=== PATIENT | male | born 1945 | race Caucasian/White ===

== ENCOUNTER 2016-09-18 08:56 | Outpatient (RCR) | payer MEDICARE ==
--- OUTSIDE RECORDS SUMMARY | 2016-07-11 13:19 | XMS REPORT | Continuity of Care Document ---
Author Author [facility] Organization [facility] Address Unknown Phone Unavailable Care Team Providers Care Airfield Operations Specialist Name Role Phone Art Das PCP [phone] Source Comments Some departments are not documenting in the electronic medical record. If you do not see the information that you expected, contact Release of Information in the Health Information Management department at [phone] for further assistance in locating additional records.[facility] Active Allergies and Adverse Reactions Allergen Noted Date Severity Reactions Comments Penicillins 06/23/2016 Medium ITCHING, EDEMA Sulfa (Sulfonamide 06/23/2016 Low SEE COMMENTS "Makes scrotum peel" Antibiotics) Current Medications Prescription Sig. Disp. Refills Start End Date Status Date Fish,Bora,Flax Take 2 Caps by mouth Active Oils-OM3,6,9 #1 (OMEGA daily. 3-6-9 COMPLEX) 400-400-400 mg cap other medication Take 2 Doses by mouth Active daily. Skeletal Strength pyridoxine (vitamin B6) Take 100 mg by mouth Active (VITAMIN B-6) 50 mg daily. tablet other medication Take 2 Doses by mouth Active daily. L-Arginine 500 mg, L-Ornithine Amino Acids 250 mg cyanocobalamin(+) Take 500 mcg by mouth Active (VITAMIN B-12) 500 mcg daily. tablet other medication Take 2 Doses by mouth Active daily. Protease Plus Enzymees 60,000 HUT other medication Take 2 Doses by mouth Active daily. Apricot Powder B17 Amygdalin 100 mg other medication Take 2 Doses by mouth Active daily. Perfect eye with Lutein other medication Take 1 Dose by mouth Active daily. BeeCaps Plus with Chromium tamsulosin (FLOMAX) 0.4 Take 0.4 mg by mouth Active mg capsule daily. Do not crush, chew or open capsules. Take 30 minutes following the same meal each day. simvastatin (ZOCOR) 20 mg Take 20 mg by mouth at Active tablet bedtime daily. dicyclomine (BENTYL) 10 Take 10 mg by mouth four Active mg capsule times daily. ALPRAZolam (XANAX) 0.5 mg Take 0.5-1 mg by mouth Active tablet daily. folic acid (FOLVITE) 1 mg Take 1 mg by mouth daily. Active tablet gabapentin (NEURONTIN) Take 300 mg by mouth Active 300 mg capsule three times daily. 3 tabs in am, 3 tabs in afternoon and 4 tab at bedtime. Active Problems Problem Noted Date Small cell lung cancer (HCC) 06/23/2016 Most Recent Encounters Date Type Specialty Providers Description 07/03/2016 Office Visit Radiation Therapy Chuck Alegria MD Small cell lung cancer, right (HCC) (Primary Dx) 07/03/2016 [facility] Radiology Dioni Ferris MD Encounter 07/03/2016 Screening Form 06/23/2016 [facility] Oncology Dioni Ferris MD Encounter 06/23/2016 Office Visit Oncology Dioni Ferris MD Small cell lung cancer, right (HCC) (Primary Dx) 06/23/2016 Orders Only Oncology Dioni Ferris MD Small cell lung cancer, right (HCC) (Primary Dx) Social History Tobacco Use Types Packs/Day Years Used Date Former Smoker Cigarettes 0.25 50 Quit: 06/23/2015 Smokeless Tobacco: Never Used Alcohol Use Drinks/Week oz/Week Comments No 0 Standard 0.0 drinks or equivalent Last Filed Vital Signs Vital Sign Reading Time Taken Blood Pressure 130/87 07/03/2016 10:16 AM CDT Pulse 86 07/03/2016 10:16 AM CDT Temperature 36.8 C (98.3 F) 07/03/2016 10:16 AM CDT Respiratory Rate 18 07/03/2016 10:16 AM CDT Height 1.88 m (6' 2") 07/03/2016 10:16 AM CDT Weight 97.705 kg (215 lb 6.4 oz) 07/03/2016 10:16 AM CDT Body Mass Index 27.64 07/03/2016 10:16 AM CDT Oxygen Saturation 94% 07/03/2016 10:16 AM CDT Plan of Care Health Maintenance Due Date Last Done Comments Hepatitis C Screening 1945 Physical (Comprehensive) 1953 Exam Pertussis Vaccine 1957 Tetanus Vaccine 1963 Colorectal Cancer 1996 Screening Shingles Vaccine 2006 Prevnar/Pneumovax (#1) 2011 Influenza Vaccine 06/08/2016 05/08/2015 (Previously completed) Results from Last 3 Months NM PET SCAN TORSO (SKULL-THIGHS) (07/03/2016 9:00 AM) Impressions 1. Extensive hypermetabolic mediastinal and bilateral hilar adenopathy consistent with metastatic disease. 2. No evidence of extra silver metastatic disease. 3. Calcified coronary artery disease and emphysema. 4. Nonobstructing left nephrolithiasis. Finalized by Edmond Sol M.D. on 07/03/2016 9:32 AM. Dictated by Edmond Sol M.D. on 07/03/2016 9:21 AM. Narrative PET/CT NECK, CHEST, ABDOMEN AND PELVIS CLINICAL HISTORY:Male, 71 years old. Small cell lung cancer, right. Chemotherapy completed in February 2016. RADIOPHARMACEUTICAL:13.3 mCi F-18 Fluorodeoxyglucose (FDG) IV. TECHNIQUE:Beginning approximately 69 minutes after tracer administration, routine whole body PET/CT imaging was performed from the level of the base of the skull to the upper thighs.PET images were reviewed in standard orthogonal projections.Low dose non-contrast CT imaging was performed for attenuation correction and localization purposes. BLOOD GLUCOSE LEVEL AT THE TIME OF RADIOPHARMACEUTICAL ADMINISTRATION:113 mg /dl COMPARISON: Outside CT chest and abdomen dated 05/17/2016 FINDINGS: The current mean hepatic SUV is 3.2 Head/Neck: No suspicious lesions are identified in this region. Chest: Markedly hypermetabolic mediastinal adenopathy is noted. The largest right subcarinal lymph node mass has increased in size now measuring 4.7 x 2.6 cm with a maximal SUV of 20.9. Hypermetabolic bilateral hilar lymph nodes are also noted with maximal SUVs ranging up to 7.1. No suspicious hypermetabolic pulmonary lesions are identified. Abdomen/Pelvis: No suspicious hypermetabolic lesions are seen within the abdomen or pelvis. Physiological activity is noted within the kidneys and bladder. Osseous Structures: No suspicious hypermetabolic osseous lesions are seen. Additional significant low dose CT findings: Left-sided chest port is in place. Emphysematous changes throughout both lungs. Calcified coronary artery disease. Nonobstructing left nephrolithiasis. Colonic diverticulosis. Probable old L1 compression deformity. Uncorrected PET images:The uncorrected PET images demonstrate no additional abnormality. Procedure Note Interface, Radiant Results - SunJul 03, 2016 9:35 AM CDT PET/CT NECK, CHEST, ABDOMEN AND PELVIS CLINICAL HISTORY: Male, 71 years old. Small cell lung cancer, right. Chemotherapy completed in February 2016. RADIOPHARMACEUTICAL: 13.3 mCi F-18 Fluorodeoxyglucose (FDG) IV. TECHNIQUE: Beginning approximately 69 minutes after tracer administration, routine whole body PET/CT imaging was performed from the level of the base of the skull to the upper thighs. PET images were reviewed in standard orthogonal projections. Low dose non-contrast CT imaging was performed for attenuation correction and localization purposes. BLOOD GLUCOSE LEVEL AT THE TIME OF RADIOPHARMACEUTICAL ADMINISTRATION: 113 mg/ dl COMPARISON: Outside CT chest and abdomen dated 05/17/2016 FINDINGS: The current mean hepatic SUV is 3.2 Head/Neck: No suspicious lesions are identified in this region. Chest: Markedly hypermetabolic mediastinal adenopathy is noted. The largest right subcarinal lymph node mass has increased in size now measuring 4.7 x 2.6 cm with a maximal SUV of 20.9. Hypermetabolic bilateral hilar lymph nodes are also noted with maximal SUVs ranging up to 7.1. No suspicious hypermetabolic pulmonary lesions are identified. Abdomen/Pelvis: No suspicious hypermetabolic lesions are seen within the abdomen or pelvis. Physiological activity is noted within the kidneys and bladder. Osseous Structures: No suspicious hypermetabolic osseous lesions are seen. Additional significant low dose CT findings: Left-sided chest port is in place. Emphysematous changes throughout both lungs. Calcified coronary artery disease. Nonobstructing left nephrolithiasis. Colonic diverticulosis. Probable old L1 compression deformity. Uncorrected PET images: The uncorrected PET images demonstrate no additional abnormality. IMPRESSION 1. Extensive hypermetabolic mediastinal and bilateral hilar adenopathy consistent with metastatic disease. 2. No evidence of extra silver metastatic disease. 3. Calcified coronary artery disease and emphysema. 4. Nonobstructing left nephrolithiasis. Finalized by Edmond Sol M.D. on 07/03/2016 9:32 AM. Dictated by Edmond Sol M.D. on 07/03/2016 9:21 AM. COMPREHENSIVE METABOLIC PANEL (06/23/2016 2:36 PM) Component Value Range Sodium 139 137-147 MMOL/L Potassium 4.0 3.5-5.1 MMOL/L Chloride 106 98-110 MMOL/L Glucose 102 (H) 70-100 MG/DL Blood Urea Nitrogen 17 7-25 MG/DL Creatinine 1.06 0.4-1.24 MG/DL Calcium 9.9 8.5-10.6 MG/DL Total Protein 7.4 6.0-8.0 G/DL Total Bilirubin 0.5 0.3-1.2 MG/DL Albumin 4.2 3.5-5.0 G/DL Alk Phosphatase 44 25-110 U/L AST (SGOT) 28 7-40 U/L CO2 27 21-30 MMOL/L ALT (SGPT) 28 7-56 U/L Anion Gap 6 3-12 eGFR Non >60Comment: >60 mL/min The eGFR is not validated for use in drug dosing adjustments. Continue to use estimated creatinine clearance per dosing reference text. Please contact the Clinical Pharmacist for questions. eGFR >60Comment: >60 mL/min The eGFR is not validated for use in drug dosing adjustments. Continue to use estimated creatinine clearance per dosing reference text. Please contact the Clinical Pharmacist for questions. Specimen Blood CBC AND DIFF (06/23/2016 2:36 PM) Component Value Range White Blood Cells 4.5 4.5-11.0 K/UL RBC 4.83 4.4-5.5 M/UL Hemoglobin 14.3 13.5-16.5 GM/DL Hematocrit 42.4 40-50 % MCV 87.8 80-100 FL MCH 29.7 26-34 PG MCHC 33.8 32.0-36.0 G/DL RDW 14.4 11-15 % Platelet Count 165 150-400 K/UL MPV 7.5 7-11 FL Neutrophils 60 41-77 % Lymphocytes 24 24-44 % Monocytes 11 4-12 % Eosinophils 5 0-5 % Basophils 0 0-2 % Absolute Neutrophil Count 2.70 1.8-7.0 K/UL Absolute Lymph Count 1.10 1.0-4.8 K/UL Absolute Monocyte Count 0.50 0-0.80 K/UL Absolute Eosinophil Count 0.20 0-0.45 K/UL Absolute Basophil Count 0.00 0-0.20 K/UL Specimen Blood
[~2016-09-18 08:56] MED LIST: ALPR0.5T PO; ASP81TEC PO; BEE580CA PO; HYDR-3730 PO; L.AC1CAP6 PO; LOTE5DRO4 OP; OMEG-109 PO; ONDA4TAB8 PO; SIMV20TA3 PO; TAMS0.4C2 PO; TRM50T PO; [UNRECOGNIZED DRUG - OTHER] PO; [UNRECOGNIZED DRUG - OTHER] PO
[2016-09-18 09:26] LABS: BASOPHILS % (AUTO) 0 % (0-10); EOSINOPHILS # (AUTO) 0.3 10^3/uL (0.0-0.3); EOSINOPHILS % (AUTO) 8 % (0-10); LYMPHOCYTES # (AUTO) 0.5 X 10^3 (1.0-4.0); LYMPHOCYTES % (AUTO) 13 % (12-44); MEAN CORPUSCULAR HEMOGLOBIN 30 PG (25-34); MEAN CORPUSCULAR HGB CONC 33 G/DL (32-36); MEAN CORPUSCULAR VOLUME 92 FL (80-99); MEAN PLATELET VOLUME 8.6 FL (7.4-10.4); MONOCYTES # (AUTO) 0.4 X 10^3 (0.0-1.0); MONOCYTES % (AUTO) 11 % (0-12); NEUTROPHILS # (AUTO) 2.4 X 10^3 (1.8-7.8); NEUTROPHILS % (AUTO) 68 % (42-75); PLATELET COUNT 140 10^3/uL (130-400); RED BLOOD COUNT 4.31 10^6/uL (4.35-5.85); RED CELL DISTRIBUTION WIDTH 15.6 % (10.0-14.5); WHITE BLOOD COUNT 3.5 10^3/uL (4.3-11.0)
[2016-09-18 09:55] LABS: ALANINE AMINOTRANSFERASE 17 U/L (0-55); ALBUMIN 3.6 G/DL (3.2-4.5); ANION GAP 6 MMOL/L (5-14); ASPARTATE AMINO TRANSFERASE 17 U/L (5-34); BILIRUBIN,TOTAL 0.6 MG/DL (0.1-1.0); BLOOD UREA NITROGEN 12 MG/DL (7-18); BUN/CREATININE RATIO 13; CALCIUM 8.7 MG/DL (8.5-10.1); CARBON DIOXIDE 24 MMOL/L (21-32); CHLORIDE 111 MMOL/L (98-107); CREATININE SERUM 0.93 MG/DL (0.60-1.30); GFR ESTIMATED > 60; GLUCOSE 146 MG/DL (70-105); SODIUM 141 MMOL/L (135-145); TOTAL PROTEIN 6.1 G/DL (6.4-8.2)
== END 2016-10-09 | disposition home or self-care (01) ==
LOC: ONC 08:56
PROVIDERS: ATTEND Internal Medicine Hematology & Oncology
DX: Z51.0 Encounter for antineoplastic radiation therapy (principal); C34.81 Malignant neoplasm of overlapping sites of right bronchus and lung; F17.210 Nicotine dependence, cigarettes, uncomplicated
CPT/HCPCS: 36591; 77290; 77295; 77300; 77307; 77332; 77334; 77336; 77412; 77417; 77470; 80053; 85025; 96523; 99213; 99214

== ENCOUNTER 2016-10-17 13:25 | Outpatient (RCR) | payer MEDICARE | END 2016-10-27 13:48 | disposition home or self-care (01) | LOC: ONC 13:25 | PROVIDERS: ATTEND Internal Medicine Hematology & Oncology | DX: C34.81 Malignant neoplasm of overlapping sites of right bronchus and lung (principal); F17.210 Nicotine dependence, cigarettes, uncomplicated; Z45.2 Encounter for adjustment and management of vascular access device | CPT/HCPCS: 96523 ==

== ENCOUNTER → 2016-11-17 | Outpatient (CLI) | payer MEDICARE ==
[~2016-11-17] MED LIST changes: +BARIUM SUSPENSION 2.1% (VANILLA SILQ) 450 ML PO ONE; +CATHETER FLUSH 10 ML SYR IV PRN; +IOHEXOL 350 MG/ML 100 ML (OMNIPAQUE 350) VIAL IV ONE; +NS 100 ML (IVPB) BAG IV ONE
--- OUTSIDE RECORDS SUMMARY | 2016-11-17 10:17 | XMS REPORT | Continuity of Care Document ---
Author Author [facility] Organization [facility] Address Unknown Phone Unavailable Care Team Providers Care Behavioral Intervention Specialist Name Role Phone Art Das PCP [phone] Source Comments Some departments are not documenting in the electronic medical record. If you do not see the information that you expected, contact Release of Information in the Health Information Management department at [phone] for further assistance in locating additional records.[facility] Active Allergies and Adverse Reactions Allergen Noted [...]
--- NOTE | 2016-11-17 12:51 | Diagnostic Imaging Report ---
PROCEDURE: CT chest and abdomen with contrast. TECHNIQUE: Multiple contiguous axial images were obtained through the chest and abdomen after the administration of intravenous contrast. INDICATION: Small cell carcinoma. COMPARISON: 05/17/2016. 100 mL of Omnipaque 350. FINDINGS: CT CHEST: There is right hilar lymphadenopathy with short axis measurement at 1.8 cm compared to 2.2 cm previously and infracarinal lymph nodes up to 1.3 cm in short axis. These are smaller compared to 05/17/2016. Other mediastinal mildly enlarged lymph nodes are seen including a 1.4 cm prevascular lymph node which compares to 1 cm on the previous exam, mildly enlarged. The heart size is normal. No pericardial or pleural effusion. The thoracic aorta is normal in caliber. The lungs demonstrate emphysema changes. There is a new area of irregular consolidation or mass seen in the medial aspect of the left upper lobe measuring 3.3 x 3.1 cm. There is another irregular nodule in the medial aspect of the right upper lobe measuring 1.3 cm. Although these are nonspecific and could relate to infectious or inflammatory pneumonia, there are concerning for metastatic disease. There is also a new irregular nodule measuring 1.2 cm seen in the medial aspect of the right upper lobe just posterior to the right mainstem bronchus. This is similarly concerning for metastatic disease. CT ABDOMEN: There are multiple hypodense lesions seen in the liver mostly less than 1 cm in size with the largest measuring 1.5 cm in the left hepatic lobe. These are too small to accurately characterize and demonstrate no significant change from the previous study. The spleen is not enlarged. The adrenals appear unremarkable. The pancreas appear unremarkable. The kidneys have symmetric enhancement and contrast excretion. A parapelvic cyst is seen in the right kidney with no solid component. 8 mm nonobstructive stone in the lower pole of the left kidney is again seen. The abdominal aorta is normal in caliber. No periaortic significantly enlarged lymph node is seen. The osseous structures demonstrate an old compression fracture of L1 with no definite change. IMPRESSION: CT CHEST: 1. The right hilar and infracarinal adenopathy is slightly smaller in size compared to the previous study. Mildly enlarged prevascular lymph nodes are larger compared to 05/17/2016. 2. New pulmonary nodules and left upper lobe irregular consolidation/mass. While these could be pneumonitis related, metastatic disease should be considered. 3. Advanced emphysema. CT ABDOMEN: Stable hypodense lesions in the liver too small to accurately characterize, likely related to cysts. No definite metastasis. Dictated by: Dictated on workstation # [id number]
--- NOTE | 2016-11-20 08:07 | Diagnostic Imaging Report ---
INDICATION: Small cell lung cancer. EXAMINATION: Whole-body bone scan was performed in the routine fashion. Patient was given 27.0 mCi of technetium 99m MDP intravenously. COMPARISON: There is no previous study for comparison. FINDINGS: There is physiologic uptake throughout the skeleton. Both kidneys excrete the tracer and tracer is visualized into the bladder. There is increased uptake over the right AC joint, compatible with degenerative change. There are no other abnormal foci. IMPRESSION: No scintigraphic evidence of osseous metastatic disease. Degenerative type increased uptake over the right AC joint. Dictated by: Dictated on workstation # [id number]
== END ==
LOC: CARD 10:14
PROVIDERS: ATTEND Internal Medicine Hematology & Oncology
DX: C34.81 Malignant neoplasm of overlapping sites of right bronchus and lung (principal)
CPT/HCPCS: 71260; 74160; 78306

== ENCOUNTER 2017-01-16 10:02 | Outpatient (RCR) | payer MEDICARE ==
--- OUTSIDE RECORDS SUMMARY | 2016-10-31 13:31 | XMS REPORT | Continuity of Care Document ---
Author Author [facility] Organization [facility] Address Unknown Phone Unavailable Care Team Providers Care Jeweler Apprentice Name Role Phone Art Das PCP [phone] Source Comments Some departments are not documenting in the electronic medical record. If you do not see the information that you expected, contact Release of Information in the Health Information Management department at [phone] for further assistance in locating additional records.[facility] Active Allergies and Adverse Reactions Allergen Noted [...] Date Small cell lung cancer (HCC) 06/23/2016 Social History Tobacco Use Types Packs/Day Years [...] (Previously completed) Results from Last 3 Months Not on file
[2016-11-17 10:07] LABS: BASOPHILS % (AUTO) 0 % (0-10); EOSINOPHILS # (AUTO) 0.3 10^3/uL (0.0-0.3); EOSINOPHILS % (AUTO) 6 % (0-10); LYMPHOCYTES # (AUTO) 0.6 X 10^3 (1.0-4.0); LYMPHOCYTES % (AUTO) 13 % (12-44); MEAN CORPUSCULAR HEMOGLOBIN 31 PG (25-34); MEAN CORPUSCULAR HGB CONC 33 G/DL (32-36); MEAN CORPUSCULAR VOLUME 93 FL (80-99); MEAN PLATELET VOLUME 9.2 FL (7.4-10.4); MONOCYTES # (AUTO) 0.5 X 10^3 (0.0-1.0); MONOCYTES % (AUTO) 11 % (0-12); NEUTROPHILS # (AUTO) 3.2 X 10^3 (1.8-7.8); NEUTROPHILS % (AUTO) 70 % (42-75); PLATELET COUNT 161 10^3/uL (130-400); RED BLOOD COUNT 4.31 10^6/uL (4.35-5.85); RED CELL DISTRIBUTION WIDTH 13.7 % (10.0-14.5); WHITE BLOOD COUNT 4.6 10^3/uL (4.3-11.0)
[2016-11-17 10:31] LABS: ALANINE AMINOTRANSFERASE 20 U/L (0-55); ALBUMIN 3.7 G/DL (3.2-4.5); ANION GAP 8 MMOL/L (5-14); ASPARTATE AMINO TRANSFERASE 21 U/L (5-34); BILIRUBIN,TOTAL 0.5 MG/DL (0.1-1.0); BLOOD UREA NITROGEN 12 MG/DL (7-18); BUN/CREATININE RATIO 14; CALCIUM 8.5 MG/DL (8.5-10.1); CARBON DIOXIDE 25 MMOL/L (21-32); CHLORIDE 108 MMOL/L (98-107); CREATININE SERUM 0.87 MG/DL (0.60-1.30); GFR ESTIMATED > 60; GLUCOSE 104 MG/DL (70-105); LACTATE DEHYDROGENASE 180 U/L (125-220); SODIUM 141 MMOL/L (135-145); TOTAL PROTEIN 6.4 G/DL (6.4-8.2)
[~2017-01-16 10:02] MED LIST changes: -BARIUM SUSPENSION 2.1% (VANILLA SILQ) 450 ML PO ONE; -CATHETER FLUSH 10 ML SYR IV PRN; -IOHEXOL 350 MG/ML 100 ML (OMNIPAQUE 350) VIAL IV ONE; -NS 100 ML (IVPB) BAG IV ONE
[2017-01-16 10:25] LABS: BASOPHILS % (AUTO) 0 % (0-10); EOSINOPHILS # (AUTO) 0.1 10^3/uL (0.0-0.3); EOSINOPHILS % (AUTO) 3 % (0-10); LYMPHOCYTES # (AUTO) 0.6 X 10^3 (1.0-4.0); LYMPHOCYTES % (AUTO) 13 % (12-44); MEAN CORPUSCULAR HEMOGLOBIN 30 PG (25-34); MEAN CORPUSCULAR HGB CONC 33 G/DL (32-36); MEAN CORPUSCULAR VOLUME 89 FL (80-99); MEAN PLATELET VOLUME 9.1 FL (7.4-10.4); MONOCYTES # (AUTO) 0.5 X 10^3 (0.0-1.0); MONOCYTES % (AUTO) 10 % (0-12); NEUTROPHILS # (AUTO) 3.6 X 10^3 (1.8-7.8); NEUTROPHILS % (AUTO) 74 % (42-75); PLATELET COUNT 211 10^3/uL (130-400); RED CELL DISTRIBUTION WIDTH 14.1 % (10.0-14.5); WHITE BLOOD COUNT 4.9 10^3/uL (4.3-11.0)
[2017-01-16 10:58] LABS: ALANINE AMINOTRANSFERASE 18 U/L (0-55); ALBUMIN 3.8 G/DL (3.2-4.5); ANION GAP 9 MMOL/L (5-14); ASPARTATE AMINO TRANSFERASE 24 U/L (5-34); BILIRUBIN,TOTAL 0.6 MG/DL (0.1-1.0); BLOOD UREA NITROGEN 11 MG/DL (7-18); BUN/CREATININE RATIO 12; CALCIUM 8.8 MG/DL (8.5-10.1); CARBON DIOXIDE 23 MMOL/L (21-32); CHLORIDE 109 MMOL/L (98-107); CREATININE SERUM 0.89 MG/DL (0.60-1.30); GFR ESTIMATED > 60; GLUCOSE 103 MG/DL (70-105); LACTATE DEHYDROGENASE 176 U/L (125-220); POTASSIUM 4.1 MMOL/L (3.6-5.0); SODIUM 141 MMOL/L (135-145); TOTAL PROTEIN 6.8 G/DL (6.4-8.2)
== END 2017-01-29 | disposition home or self-care (01) ==
LOC: ONC 10:02
PROVIDERS: ATTEND Internal Medicine Hematology & Oncology
DX: C34.81 Malignant neoplasm of overlapping sites of right bronchus and lung (principal); F17.210 Nicotine dependence, cigarettes, uncomplicated; J43.9 Emphysema, unspecified; R91.1 Solitary pulmonary nodule; K76.9 Liver disease, unspecified
CPT/HCPCS: 36591; 80053; 83615; 85025; 96523; 99213; 99214

== ENCOUNTER → 2017-01-16 | Outpatient (CLI) | payer MEDICARE ==
--- NOTE | 2017-01-16 12:05 | Diagnostic Imaging Report ---
PROCEDURE: CT chest and abdomen with contrast. TECHNIQUE: Multiple contiguous axial images were obtained through the chest and abdomen after the administration of intravenous contrast. INDICATION: Small cell lung cancer. 100 mL of Omnipaque 350 is administered intravenously. COMPARISON: 11/17/2016. FINDINGS: CT CHEST: There is decrease in the size of nodular area of consolidation now measuring 2.4 x 2.1 cm compared to 3.3 x 3.1 cm on the prior study. There is also a nonspecific nodular density measuring 1.1 cm in the medial aspect of the right upper lobe which appears less prominent compared to the prior study. Background significant emphysema changes are seen bilaterally. In the right hilum, there is a lymph node mass enlarging from the previous exam measuring at this point 3.1 x 1.8 cm compared to 1.3 cm previously along the inferior aspect of the right hilum. More superiorly, previously seen lymph node measuring 1.7 cm in short axis is minimally more prominent at 1.8 cm at the current exam. Subcarinal lymphadenopathy demonstrates no change at 1.3 cm in size. There are also minimally prominent unchanged prevascular lymph nodes seen. The heart size is normal. There is minimal pericardial effusion. There is no pleural effusion. The thoracic aorta is normal in caliber. No axillary lymphadenopathy. The osseous structures appear grossly unremarkable. CT ABDOMEN: Multiple hypodense lesions in the liver are seen up to 1.4 cm in size similar to 11/17/2016. These are too small to characterize and are likely related to cysts. The spleen is not enlarged. The right adrenal gland demonstrates a new nodule measuring 1.8 cm suggestive of metastasis. The left adrenal gland appears unremarkable. The pancreas appears unremarkable. The kidneys have bilateral cysts. The abdominal aorta is normal in caliber. Nonobstructive stone in the left kidney measuring 8 mm is seen. The osseous structures appear grossly unremarkable. IMPRESSION: CT CHEST: 1. Significant enlargement of right infrahilar lymph node mass now measuring 3.2 x 1.8 cm. 2. Stable other hilar and mediastinal lymph nodes. 3. Slightly smaller nodular densities in the medial aspect of the left upper lobe and right upper lobe. 4. Emphysema. CT ABDOMEN: 1. A new 1.8 cm right adrenal nodule compatible with metastatic disease. 2. Stable multiple small hypodense lesions in the liver could represent cysts. Dictated by: Dictated on workstation # [id number]
--- NOTE | 2017-01-16 14:33 | Diagnostic Imaging Report ---
Whole body bone scan. TECHNIQUE: After the intravenous administration of 27 mCi of Technetium 99m MDP, whole body delayed phase bone scan images were obtained with lateral views of the head and neck and the chest regions. INDICATION: Small cell lung cancer. FINDINGS: There is mild increased tracer uptake in the right shoulder and minimal other degenerative related activity seen. There is suggestion of a focal activity projecting along the lateral aspect of lower left rib or adjacent soft tissue. This is favored to be post traumatic or related to ossification of chondral cartilage with no suspicious foci of activity seen to suggest metastatic disease. Urinary tract activity is noted. IMPRESSION: Findings are suggestive of degenerative changes and focus of lateral lower chest activity on the left side which is likely post traumatic or related to ossification of chondral cartilage. No scintigraphic evidence of osseous metastasis. Dictated by: Dictated on workstation # [id number]
== END ==
LOC: CARD 10:31
PROVIDERS: ATTEND Internal Medicine Hematology & Oncology
DX: C34.81 Malignant neoplasm of overlapping sites of right bronchus and lung (principal)
CPT/HCPCS: 36591; 71260; 74160; 78306; 80053; 83615; 85025

== ENCOUNTER → 2017-03-21 | Outpatient (CLI) | payer MEDICARE ==
[~2017-03-21] MED LIST changes: +GADOBUTROL 10 MMOL/10 ML (GADAVIST) VIAL IV ONE
--- NOTE | 2017-03-21 15:28 | Diagnostic Imaging Report ---
Two views of the right hip. INDICATION: Right hip pain. FINDINGS: There is mild joint space narrowing of the right hip with subchondral sclerosis. There are minimal sclerotic degenerative changes in the right SI joint. No fracture or dislocation seen. Multiple calcifications of the pelvis are likely phleboliths. IMPRESSION: Mild degenerative changes. Dictated by: Dictated on workstation # [id number]
--- NOTE | 2017-03-23 10:15 | Diagnostic Imaging Report ---
PROCEDURE: MR imaging of the brain with and without contrast. TECHNIQUE: Multiplanar, multisequence MR imaging of the brain was performed with and without contrast. 8 mL of Gadavist was administered intravenously. INDICATION: Dizziness. Small cell lung cancer. FINDINGS: There is no diffusion restriction to suggest an acute infarct or other diffusion abnormality. The brain parenchyma demonstrates periventricular and deep white hypodensities compatible with chronic microvascular ischemic changes with no mass effect or enhancing lesion identified. There is no hydrocephalus. No extra-axial fluid collection is seen. No extra-axial mass. The pituitary gland is normal in size. No hypothalamic or pineal region mass. The internal ear canals and inner ear structures appear unremarkable. There is opacification of the mastoid air cells, bilaterally. IMPRESSION: 1. No acute infarct or enhancing mass in the brain is seen. 2. There is fluid signal obliterating the mastoid air cells, bilaterally. Correlate for possible mastoiditis. Report was faxed to the office of Chela Reynolds APRN at 4:17 p.m., by rush. Dictated by: Dictated on workstation # [id number]
== END ==
LOC: RAD 15:01
PROVIDERS: ATTEND Nurse Practitioner Adult Health
DX: M25.551 Pain in right hip (principal); C34.81 Malignant neoplasm of overlapping sites of right bronchus and lung; R42 Dizziness and giddiness
CPT/HCPCS: 70553; 73502

== ENCOUNTER 2017-03-26 20:19 | Inpatient (IN) | payer MEDICARE ==
[~2017-03-26 20:19] MED LIST changes: -GADOBUTROL 10 MMOL/10 ML (GADAVIST) VIAL IV ONE
[2017-03-26] MEDS ORDERED: ASPIRIN 81 MG CHEW (CHILDREN'S ASA) PO ONE (20:30)
[2017-03-26] MEDS ORDERED: RX-NITROGLYCERIN 0.4 MG TAB BTL 25'S SL PRN (20:30)
[2017-03-26] MEDS ORDERED: ENOXAPARIN 100 MG/1 ML (LOVENOX) SYR SC ONE (20:45)
[2017-03-26] MEDS ORDERED: DILTIAZEM DRIP 100 MG in SODIUM CHLORIDE (ADD-VANTAGE) 100 ML IV SCH (20:45)
[2017-03-26] MEDS ORDERED: DILTIAZEM 25 MG/5 ML INJ (CARDIZEM) VIAL IVP ONE (20:45)
[2017-03-26] MEDS ORDERED: morphine INJ 10 MG/ML 1ML (SYR OR VIAL) ONE (20:48)
[2017-03-26] MEDS ORDERED: NS IV 1000 ML 1,000 ML ONE (20:48)
[2017-03-26] MEDS ORDERED: morphine INJ 10 MG/ML 1ML (SYR OR VIAL) IVP STA ×2 (20:52→21:28)
[2017-03-26] MEDS ORDERED: NS IV 1000 ML 1,000 ML IV ONE (20:52)
[2017-03-26] MEDS ORDERED: NS 100 ML (IVPB) BAG IV ONE (22:00)
[2017-03-26] MEDS ORDERED: IOHEXOL 350 MG/ML 150 ML (OMNIPAQUE 350) VIAL IV ONE (22:00)
[2017-03-27] MEDS ORDERED: DILTIAZEM DRIP 100 MG/NS 100 ML IV SCH ×2 (02:15)
[2017-03-27] MEDS ORDERED: CATHETER FLUSH 10 ML SYR IV PRN (02:15)
[2017-03-27] MEDS ORDERED: NITROGLYCERIN SUBLINGUAL 0.4 MG TAB (NITROSTAT) SL PRN (02:15)
[2017-03-27] MEDS ORDERED: morphine INJ 4 MG/ML 1 ML (VIAL/SYRINGE) IV PRN (02:15)
[2017-03-27] MEDS: CATHETER FLUSH 10 ML SYR IV SCH ×3 (05:08→21:43)
[2017-03-27] MEDS ORDERED: MAGNESIUM 1 GM/100 ML IVPB 100 ML IV SCH (06:00)
[2017-03-27] MEDS ORDERED: POTASSIUM CL 10MEQ/50ML IVPB 50 ML IV SCH (06:00)
[2017-03-27] MEDS ORDERED: KCL 20 MEQ TAB (K-DUR) PO SCH (06:00)
[2017-03-27] MEDS ORDERED: ASPIRIN E.C. 325 MG (ECOTRIN) TABLET PO SCH (09:00)
[2017-03-27] MEDS ORDERED: DILTIAZEM 180 MG (CARDIZEM CD) CAP PO NR (09:15)
[2017-03-27] MEDS: PANTOPRAZOLE 40 MG/10 ML (PROTONIX) VIAL IV SCH (09:17)
[2017-03-27] MEDS: ENOXAPARIN 100 MG/1 ML (LOVENOX) SYR SC SCH ×2 (09:18→21:42)
[2017-03-27] MEDS ORDERED: REGADENOSON 0.4 MG/5 ML SYR (LEXISCAN) IV ONE ×2 (13:22→14:00)
[2017-03-27] MEDS ORDERED: ONDANSETRON 4 MG/2 ML (SDV) Z0FRAN ONE (13:54)
[2017-03-27] MEDS ORDERED: ONDANSETRON 4 MG/2 ML (SDV) Z0FRAN IVP ONE (14:00)
[2017-03-27] MEDS ORDERED: PRD10T PO (15:58)
[2017-03-27] MEDS ORDERED: TRAM50TA2 PO (15:58)
[2017-03-27] MEDS ORDERED: SIMV40TA4 PO (15:58)
[2017-03-27] MEDS ORDERED: DOXY100C2 PO (15:58)
[2017-03-27] MEDS ORDERED: ASPI-808 PO (15:58)
[2017-03-27] MEDS ORDERED: TURM500C4 PO (15:58)
[2017-03-27] MEDS ORDERED: BACL10TA PO (15:58)
[2017-03-27] MEDS ORDERED: [UNRECOGNIZED DRUG - OTHER] PO (15:58)
[2017-03-27] MEDS ORDERED: DICY10CA12 PO (15:58)
[2017-03-27] MEDS ORDERED: VITA400C60 PO (15:58)
[2017-03-27] MEDS ORDERED: ONDA8TAB12 PO (15:58)
[2017-03-27] MEDS ORDERED: TAMS0.4C2 PO (15:58)
[2017-03-27] MEDS ORDERED: VITA150T PO (15:58)
[2017-03-27] MEDS ORDERED: ZINC30TA2 PO (15:58)
[2017-03-27] MEDS ORDERED: ALPR0.5T7 PO (15:58)
[2017-03-27] MEDS ORDERED: RX-TRAMADOL 50 MG (ULTRAM) TAB PPK#4 PO PRN (16:45)
[2017-03-27] MEDS ORDERED: ALPRAZolam 0.5 MG (XANAX) TAB PO PRN (16:45)
[2017-03-27] MEDS ORDERED: NON-FORMULARY MEDICATION 1 EA EA (Ondansetron HCl 8 MG) PO PRN (16:45)
[2017-03-27] MEDS ORDERED: PATIENT MAY USE OWN MEDS, ALL MC SCH (17:00)
[2017-03-27] MEDS ORDERED: ONDANSETRON 8 MG (ZOFRAN) TABLET (NON-STOCK ITEM) PO PRN (17:30)
[2017-03-27] MEDS ORDERED: meTOproloL SUCCINATE 50 MG (TOPROL XL) TAB PO SCH (18:00)
[2017-03-27] MEDS: TAMSULOSIN 0.4 MG CAPSULE PO SCH (18:06)
[2017-03-27] MEDS: predniSONE 10 MG TAB PO SCH (18:07)
[2017-03-27] MEDS: SIMvastatin 40 MG (ZOCOR) TAB PO SCH (21:38)
[2017-03-27] MEDS: DOXYCYCLINE 100 MG (VIBRAMYCIN) TABLET PO SCH (21:42)
[2017-03-27] MEDS: DICYCLOMINE 10 MG (BENTYL) CAP PO SCH (21:42)
[2017-03-27] MEDS: BACLOFEN 10 MG (LIORESAL) TAB PO SCH (21:43)
[2017-03-27] MEDS ORDERED: NS IV 1000 ML 1,000 ML ONE (21:54)
[2017-03-27] MEDS: NS IV 1000 ML 1,000 ML IV SCH (22:09)
[2017-03-28] MEDS: NS IV 1000 ML 1,000 ML IV SCH ×2 (04:58→17:58)
[2017-03-28] MEDS: CATHETER FLUSH 10 ML SYR IV SCH ×3 (04:58→21:13)
[2017-03-28] MEDS ORDERED: meTOproloL SUCCINATE 50 MG (TOPROL XL) TAB PO SCH (09:00)
[2017-03-28] MEDS ORDERED: NON-FORMULARY MEDICATION 1 EA EA (Omega-3 Fatty Acids/Fish Oil (Fish Oil 1,200 mg Softgel) PO SCH (09:00)
[2017-03-28] MEDS ORDERED: RT-ALBUTEROL/IPRATROPIUM 3 ML (DUONEB) VIAL INH PRN (09:15)
[2017-03-28] MEDS: DOXYCYCLINE 100 MG (VIBRAMYCIN) TABLET PO SCH ×2 (09:16→21:14)
[2017-03-28] MEDS: DILTIAZEM 180 MG (CARDIZEM CD) CAP PO SCH (09:16)
[2017-03-28] MEDS: predniSONE 10 MG TAB PO SCH ×2 (09:16→18:38)
[2017-03-28] MEDS: OMEGA 3 (FISH OIL) 1000 MG CAP PO SCH (09:16)
[2017-03-28] MEDS: ASPIRIN 325 MG (5 GR) TABLET PO SCH (09:17)
[2017-03-28] MEDS: PANTOPRAZOLE 40 MG/10 ML (PROTONIX) VIAL IV SCH (09:17)
[2017-03-28] MEDS: DICYCLOMINE 10 MG (BENTYL) CAP PO SCH ×2 (09:18→21:15)
[2017-03-28] MEDS: BACLOFEN 10 MG (LIORESAL) TAB PO SCH ×2 (09:18→21:14)
[2017-03-28] MEDS: ENOXAPARIN 100 MG/1 ML (LOVENOX) SYR SC SCH ×2 (09:19→20:37)
[2017-03-28] MEDS: NS IV 500 ML 500 ML IV SCH ×2 (11:37→14:28)
[2017-03-28] MEDS: TAMSULOSIN 0.4 MG CAPSULE PO SCH (18:36)
[2017-03-28] MEDS: SIMvastatin 40 MG (ZOCOR) TAB PO SCH (20:36)
[2017-03-29] MEDS: CATHETER FLUSH 10 ML SYR IV SCH (05:29)
[2017-03-29] MEDS ORDERED: predniSONE 10 MG TAB PO SCH (08:00)
[2017-03-29] MEDS: OMEGA 3 (FISH OIL) 1000 MG CAP PO SCH (09:06)
[2017-03-29] MEDS: PANTOPRAZOLE 40 MG/10 ML (PROTONIX) VIAL IV SCH (09:18)
[2017-03-29] MEDS: ASPIRIN 325 MG (5 GR) TABLET PO SCH (09:18)
[2017-03-29] MEDS: DICYCLOMINE 10 MG (BENTYL) CAP PO SCH (09:19)
[2017-03-29] MEDS: DOXYCYCLINE 100 MG (VIBRAMYCIN) TABLET PO SCH (09:19)
[2017-03-29] MEDS: BACLOFEN 10 MG (LIORESAL) TAB PO SCH (09:19)
[2017-03-29] MEDS: ENOXAPARIN 100 MG/1 ML (LOVENOX) SYR SC SCH (09:23)
[2017-03-29] MEDS: DILTIAZEM 180 MG (CARDIZEM CD) CAP PO SCH (09:23)
[2017-03-29] MEDS ORDERED: DILT180C64 PO (10:48)
[2017-03-29] MEDS: NS IV 1000 ML 1,000 ML IV SCH (11:02)
== END 2017-03-29 13:59 | disposition home or self-care (01) | DRG 308 ==
DX: I48.91 Unspecified atrial fibrillation (principal); K85.90 Acute pancreatitis without necrosis or infection, unspecified; R07.89 Other chest pain; C34.01 Malignant neoplasm of right main bronchus; C78.7 Secondary malignant neoplasm of liver and intrahepatic bile duct; C79.70 Secondary malignant neoplasm of unspecified adrenal gland; C78.89 Secondary malignant neoplasm of other digestive organs; C79.51 Secondary malignant neoplasm of bone; Z66 Do not resuscitate; E46 Unspecified protein-calorie malnutrition; I25.10 Atherosclerotic heart disease of native coronary artery without angina pectoris; I95.9 Hypotension, unspecified; R00.1 Bradycardia, unspecified; F41.9 Anxiety disorder, unspecified; E78.00 Pure hypercholesterolemia, unspecified; K57.90 Diverticulosis of intestine, part unspecified, without perforation or abscess without bleeding; K21.9 Gastro-esophageal reflux disease without esophagitis; N40.0 Benign prostatic hyperplasia without lower urinary tract symptoms; N20.0 Calculus of kidney; N21.0 Calculus in bladder; H40.9 Unspecified glaucoma; Z92.21 Personal history of antineoplastic chemotherapy; Z87.891 Personal history of nicotine dependence; Z85.820 Personal history of malignant melanoma of skin

== ENCOUNTER 2017-04-19 08:42 | Outpatient (RCR) | payer MEDICARE ==
[2017-02-09 09:18] LABS: BASOPHILS % (AUTO) 0 % (0-10); EOSINOPHILS # (AUTO) 0.2 10^3/uL (0.0-0.3); EOSINOPHILS % (AUTO) 3 % (0-10); LYMPHOCYTES # (AUTO) 0.6 X 10^3 (1.0-4.0); LYMPHOCYTES % (AUTO) 13 % (12-44); MEAN CORPUSCULAR HEMOGLOBIN 30 PG (25-34); MEAN CORPUSCULAR HGB CONC 33 G/DL (32-36); MEAN CORPUSCULAR VOLUME 90 FL (80-99); MEAN PLATELET VOLUME 8.7 FL (7.4-10.4); MONOCYTES # (AUTO) 0.5 X 10^3 (0.0-1.0); MONOCYTES % (AUTO) 11 % (0-12); NEUTROPHILS # (AUTO) 3.2 X 10^3 (1.8-7.8); NEUTROPHILS % (AUTO) 73 % (42-75); PLATELET COUNT 184 10^3/uL (130-400); RED BLOOD COUNT 4.37 10^6/uL (4.35-5.85); RED CELL DISTRIBUTION WIDTH 14.5 % (10.0-14.5); WHITE BLOOD COUNT 4.5 10^3/uL (4.3-11.0)
[2017-02-09 09:41] LABS: ALANINE AMINOTRANSFERASE 19 U/L (0-55); ALBUMIN 3.7 G/DL (3.2-4.5); ANION GAP 9 MMOL/L (5-14); ASPARTATE AMINO TRANSFERASE 20 U/L (5-34); BILIRUBIN,TOTAL 0.5 MG/DL (0.1-1.0); BLOOD UREA NITROGEN 12 MG/DL (7-18); BUN/CREATININE RATIO 12; CALCIUM 8.9 MG/DL (8.5-10.1); CARBON DIOXIDE 26 MMOL/L (21-32); CHLORIDE 107 MMOL/L (98-107); CREATININE SERUM 1.01 MG/DL (0.60-1.30); GFR ESTIMATED > 60; GLUCOSE 133 MG/DL (70-105); LACTATE DEHYDROGENASE 142 U/L (125-220); POTASSIUM 3.7 MMOL/L (3.6-5.0); SODIUM 142 MMOL/L (135-145); TOTAL PROTEIN 6.3 G/DL (6.4-8.2)
[2017-02-16 10:06] LABS: BASOPHILS % (AUTO) 0 % (0-10); EOSINOPHILS # (AUTO) 0.2 10^3/uL (0.0-0.3); EOSINOPHILS % (AUTO) 5 % (0-10); LYMPHOCYTES # (AUTO) 0.5 X 10^3 (1.0-4.0); LYMPHOCYTES % (AUTO) 16 % (12-44); MEAN CORPUSCULAR HEMOGLOBIN 30 PG (25-34); MEAN CORPUSCULAR HGB CONC 33 G/DL (32-36); MEAN CORPUSCULAR VOLUME 90 FL (80-99); MEAN PLATELET VOLUME 8.6 FL (7.4-10.4); MONOCYTES # (AUTO) 0.3 X 10^3 (0.0-1.0); MONOCYTES % (AUTO) 8 % (0-12); NEUTROPHILS # (AUTO) 2.4 X 10^3 (1.8-7.8); NEUTROPHILS % (AUTO) 71 % (42-75); PLATELET COUNT 127 10^3/uL (130-400); RED BLOOD COUNT 4.21 10^6/uL (4.35-5.85); RED CELL DISTRIBUTION WIDTH 13.9 % (10.0-14.5); WHITE BLOOD COUNT 3.3 10^3/uL (4.3-11.0)
--- NOTE | 2017-02-16 10:19 | Diagnostic Imaging Report ---
PA and lateral views of the chest. COMPARISON: 08/27/15. INDICATION: Small cell lung cancer FINDINGS: There is an infusion port in the anterior left chest wall with tip projecting in the lower SVC level. There is slight decreased fullness in the right infrahilar region. Nonspecific prominence of the laura is seen with no definitive mass evident by radiography. The heart size is normal. No effusion or pneumothorax. The mediastinum and laura appear unremarkable. IMPRESSION: No acute process. Dictated by: Dictated on workstation # [id number]
[2017-02-16 10:35] LABS: ANION GAP 5 MMOL/L (5-14); BLOOD UREA NITROGEN 12 MG/DL (7-18); BUN/CREATININE RATIO 13; CALCIUM 9.3 MG/DL (8.5-10.1); CARBON DIOXIDE 29 MMOL/L (21-32); CHLORIDE 109 MMOL/L (98-107); CREATININE SERUM 0.92 MG/DL (0.60-1.30); GFR ESTIMATED > 60; GLUCOSE 108 MG/DL (70-105); POTASSIUM 3.9 MMOL/L (3.6-5.0); SODIUM 143 MMOL/L (135-145)
[2017-02-23 09:46] LABS: BASOPHILS % (AUTO) 0 % (0-10); EOSINOPHILS # (AUTO) 0.2 10^3/uL (0.0-0.3); EOSINOPHILS % (AUTO) 9 % (0-10); LYMPHOCYTES # (AUTO) 0.5 X 10^3 (1.0-4.0); LYMPHOCYTES % (AUTO) 19 % (12-44); MEAN CORPUSCULAR HEMOGLOBIN 30 PG (25-34); MEAN CORPUSCULAR HGB CONC 33 G/DL (32-36); MEAN CORPUSCULAR VOLUME 90 FL (80-99); MEAN PLATELET VOLUME 9.2 FL (7.4-10.4); MONOCYTES # (AUTO) 0.2 X 10^3 (0.0-1.0); MONOCYTES % (AUTO) 6 % (0-12); NEUTROPHILS # (AUTO) 1.6 X 10^3 (1.8-7.8); NEUTROPHILS % (AUTO) 66 % (42-75); RED BLOOD COUNT 3.84 10^6/uL (4.35-5.85); RED CELL DISTRIBUTION WIDTH 13.6 % (10.0-14.5); WHITE BLOOD COUNT 2.5 10^3/uL (4.3-11.0)
[2017-02-23 09:50] LABS: PLATELET COUNT 66 10^3/uL (130-400)
[2017-02-23 09:59] LABS: ANION GAP 8 MMOL/L (5-14); BLOOD UREA NITROGEN 11 MG/DL (7-18); BUN/CREATININE RATIO 12; CALCIUM 8.4 MG/DL (8.5-10.1); CARBON DIOXIDE 24 MMOL/L (21-32); CHLORIDE 108 MMOL/L (98-107); CREATININE SERUM 0.95 MG/DL (0.60-1.30); GFR ESTIMATED > 60; GLUCOSE 145 MG/DL (70-105); POTASSIUM 3.6 MMOL/L (3.6-5.0); SODIUM 140 MMOL/L (135-145)
[2017-03-02 11:04] LABS: BASOPHILS % (AUTO) 0 % (0-10); EOSINOPHILS # (AUTO) 0.1 10^3/uL (0.0-0.3); EOSINOPHILS % (AUTO) 3 % (0-10); LYMPHOCYTES # (AUTO) 0.4 X 10^3 (1.0-4.0); LYMPHOCYTES % (AUTO) 19 % (12-44); MEAN CORPUSCULAR HEMOGLOBIN 30 PG (25-34); MEAN CORPUSCULAR HGB CONC 34 G/DL (32-36); MEAN CORPUSCULAR VOLUME 89 FL (80-99); MONOCYTES # (AUTO) 0.4 X 10^3 (0.0-1.0); MONOCYTES % (AUTO) 17 % (0-12); NEUTROPHILS # (AUTO) 1.4 X 10^3 (1.8-7.8); NEUTROPHILS % (AUTO) 61 % (42-75); PLATELET COUNT 214 10^3/uL (130-400); RED BLOOD COUNT 4.18 10^6/uL (4.35-5.85); RED CELL DISTRIBUTION WIDTH 15.1 % (10.0-14.5); WHITE BLOOD COUNT 2.3 10^3/uL (4.3-11.0)
[2017-03-02 11:13] LABS: ANION GAP 10 MMOL/L (5-14); BLOOD UREA NITROGEN 11 MG/DL (7-18); BUN/CREATININE RATIO 12; CALCIUM 9.2 MG/DL (8.5-10.1); CARBON DIOXIDE 24 MMOL/L (21-32); CHLORIDE 103 MMOL/L (98-107); GFR ESTIMATED > 60; GLUCOSE 135 MG/DL (70-105); POTASSIUM 3.7 MMOL/L (3.6-5.0); SODIUM 137 MMOL/L (135-145)
[2017-03-08 14:54] LABS: BASOPHILS % (AUTO) 0 % (0-10); EOSINOPHILS # (AUTO) 0.1 10^3/uL (0.0-0.3); EOSINOPHILS % (AUTO) 2 % (0-10); LYMPHOCYTES # (AUTO) 0.9 X 10^3 (1.0-4.0); LYMPHOCYTES % (AUTO) 24 % (12-44); MEAN CORPUSCULAR HEMOGLOBIN 30 PG (25-34); MEAN CORPUSCULAR HGB CONC 33 G/DL (32-36); MEAN CORPUSCULAR VOLUME 90 FL (80-99); MEAN PLATELET VOLUME 8.1 FL (7.4-10.4); MONOCYTES # (AUTO) 0.6 X 10^3 (0.0-1.0); MONOCYTES % (AUTO) 15 % (0-12); NEUTROPHILS # (AUTO) 2.2 X 10^3 (1.8-7.8); NEUTROPHILS % (AUTO) 59 % (42-75); PLATELET COUNT 325 10^3/uL (130-400); RED BLOOD COUNT 3.87 10^6/uL (4.35-5.85); RED CELL DISTRIBUTION WIDTH 15.6 % (10.0-14.5); WHITE BLOOD COUNT 3.8 10^3/uL (4.3-11.0)
[2017-03-08 15:26] LABS: ALANINE AMINOTRANSFERASE 19 U/L (0-55); ALBUMIN 3.9 G/DL (3.2-4.5); ANION GAP 9 MMOL/L (5-14); ASPARTATE AMINO TRANSFERASE 20 U/L (5-34); BILIRUBIN,TOTAL 0.4 MG/DL (0.1-1.0); BLOOD UREA NITROGEN 13 MG/DL (7-18); BUN/CREATININE RATIO 15; CALCIUM 8.9 MG/DL (8.5-10.1); CARBON DIOXIDE 25 MMOL/L (21-32); CHLORIDE 107 MMOL/L (98-107); CREATININE SERUM 0.89 MG/DL (0.60-1.30); GFR ESTIMATED > 60; GLUCOSE 109 MG/DL (70-105); LACTATE DEHYDROGENASE 162 U/L (125-220); MAGNESIUM 2.2 MG/DL (1.8-2.4); POTASSIUM 3.7 MMOL/L (3.6-5.0); SODIUM 141 MMOL/L (135-145); TOTAL PROTEIN 6.6 G/DL (6.4-8.2)
[2017-03-16 10:28] LABS: BASOPHILS % (AUTO) 0 % (0-10); EOSINOPHILS # (AUTO) 0.1 10^3/uL (0.0-0.3); EOSINOPHILS % (AUTO) 2 % (0-10); LYMPHOCYTES # (AUTO) 0.5 X 10^3 (1.0-4.0); LYMPHOCYTES % (AUTO) 16 % (12-44); MEAN CORPUSCULAR HEMOGLOBIN 30 PG (25-34); MEAN CORPUSCULAR HGB CONC 34 G/DL (32-36); MEAN CORPUSCULAR VOLUME 91 FL (80-99); MEAN PLATELET VOLUME 8.6 FL (7.4-10.4); MONOCYTES # (AUTO) 0.3 X 10^3 (0.0-1.0); MONOCYTES % (AUTO) 10 % (0-12); NEUTROPHILS # (AUTO) 2.4 X 10^3 (1.8-7.8); NEUTROPHILS % (AUTO) 72 % (42-75); PLATELET COUNT 152 10^3/uL (130-400); RED BLOOD COUNT 3.55 10^6/uL (4.35-5.85); RED CELL DISTRIBUTION WIDTH 15.3 % (10.0-14.5); WHITE BLOOD COUNT 3.3 10^3/uL (4.3-11.0)
[2017-03-16 10:50] LABS: ANION GAP 8 MMOL/L (5-14); BLOOD UREA NITROGEN 16 MG/DL (7-18); BUN/CREATININE RATIO 19; CALCIUM 8.8 MG/DL (8.5-10.1); CARBON DIOXIDE 26 MMOL/L (21-32); CHLORIDE 108 MMOL/L (98-107); CREATININE SERUM 0.84 MG/DL (0.60-1.30); GFR ESTIMATED > 60; GLUCOSE 103 MG/DL (70-105); POTASSIUM 3.8 MMOL/L (3.6-5.0); SODIUM 142 MMOL/L (135-145)
[2017-03-23 10:12] LABS: BASOPHILS % (AUTO) 0 % (0-10); EOSINOPHILS # (AUTO) 0.1 10^3/uL (0.0-0.3); EOSINOPHILS % (AUTO) 2 % (0-10); LYMPHOCYTES # (AUTO) 0.4 X 10^3 (1.0-4.0); LYMPHOCYTES % (AUTO) 17 % (12-44); MEAN CORPUSCULAR HEMOGLOBIN 31 PG (25-34); MEAN CORPUSCULAR HGB CONC 34 G/DL (32-36); MEAN CORPUSCULAR VOLUME 90 FL (80-99); MEAN PLATELET VOLUME 9.3 FL (7.4-10.4); MONOCYTES # (AUTO) 0.2 X 10^3 (0.0-1.0); MONOCYTES % (AUTO) 9 % (0-12); NEUTROPHILS # (AUTO) 1.5 X 10^3 (1.8-7.8); NEUTROPHILS % (AUTO) 71 % (42-75); PLATELET COUNT 78 10^3/uL (130-400); RED BLOOD COUNT 3.71 10^6/uL (4.35-5.85); RED CELL DISTRIBUTION WIDTH 15.7 % (10.0-14.5); WHITE BLOOD COUNT 2.1 10^3/uL (4.3-11.0)
[2017-03-23 10:33] LABS: ANION GAP 11 MMOL/L (5-14); BLOOD UREA NITROGEN 12 MG/DL (7-18); BUN/CREATININE RATIO 14 (0-20); CARBON DIOXIDE 24 MMOL/L (21-32); CHLORIDE 103 MMOL/L (98-107); CREATININE SERUM 0.84 MG/DL (0.60-1.30); GFR ESTIMATED > 60; GLUCOSE 150 MG/DL (70-105); HEMOLYSIS 4 (0-29); ICTERUS 1.1 (0-1.9); LIPEMIA 0 (0-49); POTASSIUM 3.5 MMOL/L (3.6-5.0); SODIUM 138 MMOL/L (135-145)
[2017-04-05 16:08] LABS: BASOPHILS % (AUTO) 0 % (0-10); EOSINOPHILS # (AUTO) 0.1 10^3/uL (0.0-0.3); EOSINOPHILS % (AUTO) 2 % (0-10); LYMPHOCYTES # (AUTO) 0.8 X 10^3 (1.0-4.0); LYMPHOCYTES % (AUTO) 16 % (12-44); MEAN CORPUSCULAR HEMOGLOBIN 30 PG (25-34); MEAN CORPUSCULAR HGB CONC 33 G/DL (32-36); MEAN CORPUSCULAR VOLUME 92 FL (80-99); MEAN PLATELET VOLUME 8.9 FL (7.4-10.4); MONOCYTES # (AUTO) 0.6 X 10^3 (0.0-1.0); MONOCYTES % (AUTO) 12 % (0-12); NEUTROPHILS # (AUTO) 3.6 X 10^3 (1.8-7.8); NEUTROPHILS % (AUTO) 70 % (42-75); PLATELET COUNT 344 10^3/uL (130-400); RED BLOOD COUNT 3.81 10^6/uL (4.35-5.85); RED CELL DISTRIBUTION WIDTH 17.9 % (10.0-14.5); WHITE BLOOD COUNT 5.2 10^3/uL (4.3-11.0)
[2017-04-05 16:30] LABS: ALANINE AMINOTRANSFERASE 26 U/L (0-55); ALBUMIN 3.6 GM/DL (3.2-4.5); ANION GAP 8 MMOL/L (5-14); ASPARTATE AMINO TRANSFERASE 18 U/L (5-34); BILIRUBIN,TOTAL 0.4 MG/DL (0.1-1.0); BLOOD UREA NITROGEN 12 MG/DL (7-18); BUN/CREATININE RATIO 16; CALCIUM 8.9 MG/DL (8.5-10.1); CARBON DIOXIDE 24 MMOL/L (21-32); CHLORIDE 108 MMOL/L (98-107); CREATININE SERUM 0.76 MG/DL (0.60-1.30); GFR ESTIMATED > 60; GLUCOSE 78 MG/DL (70-105); LACTATE DEHYDROGENASE 185 U/L (125-220); POTASSIUM 3.8 MMOL/L (3.6-5.0); SODIUM 140 MMOL/L (135-145); TOTAL PROTEIN 6.6 GM/DL (6.4-8.2)
[~2017-04-19] VITALS: Ht 185.4 cm; Wt 84.8 kg
[~2017-04-19 08:42] MED LIST changes: +ALPR0.5T7 PO; +ASPI-808 PO; +BACL10TA PO; +DICY10CA12 PO; +DILT180C90 PO; +DOXY100C2 PO; +NIVOLUMAB 200 MG, NIVOLUMAB 40 MG in NS (IVPB) CANCER CENTER 50 ML IV SCH; +NS IV 500 ML (CANCER CENTER) IV SCH; +NS IV SCH; +ONDA8TAB12 PO; +ONDANSETRON 16 MG, DEXAMETHASONE 10 MG/NS 50 ML IVPB IV SCH; +PRD10T PO; +SIMV40TA4 PO; +TOPOTECAN HCL IV SCH; +TRAM50TA2 PO; +TURM500C4 PO; +VITA150T PO; +VITA400C60 PO; +ZINC30TA2 PO; +[UNRECOGNIZED DRUG - OTHER] PO
[2017-04-19 09:02] LABS: BASOPHILS % (AUTO) 0 % (0-10); EOSINOPHILS # (AUTO) 0.2 10^3/uL (0.0-0.3); EOSINOPHILS % (AUTO) 4 % (0-10); LYMPHOCYTES # (AUTO) 0.6 X 10^3 (1.0-4.0); LYMPHOCYTES % (AUTO) 13 % (12-44); MEAN CORPUSCULAR HEMOGLOBIN 31 PG (25-34); MEAN CORPUSCULAR HGB CONC 33 G/DL (32-36); MEAN CORPUSCULAR VOLUME 94 FL (80-99); MEAN PLATELET VOLUME 9.3 FL (7.4-10.4); MONOCYTES # (AUTO) 0.5 X 10^3 (0.0-1.0); MONOCYTES % (AUTO) 10 % (0-12); NEUTROPHILS # (AUTO) 3.6 X 10^3 (1.8-7.8); NEUTROPHILS % (AUTO) 73 % (42-75); PLATELET COUNT 196 10^3/uL (130-400); RED BLOOD COUNT 3.62 10^6/uL (4.35-5.85); RED CELL DISTRIBUTION WIDTH 16.7 % (10.0-14.5)
[2017-04-19 09:32] LABS: ALANINE AMINOTRANSFERASE 16 U/L (0-55); ALBUMIN 3.6 GM/DL (3.2-4.5); ANION GAP 10 MMOL/L (5-14); ASPARTATE AMINO TRANSFERASE 19 U/L (5-34); BILIRUBIN,TOTAL 0.4 MG/DL (0.1-1.0); BLOOD UREA NITROGEN 12 MG/DL (7-18); BUN/CREATININE RATIO 14; CARBON DIOXIDE 25 MMOL/L (21-32); CHLORIDE 107 MMOL/L (98-107); CREATININE SERUM 0.85 MG/DL (0.60-1.30); GFR ESTIMATED > 60; GLUCOSE 110 MG/DL (70-105); POTASSIUM 3.9 MMOL/L (3.6-5.0); SODIUM 142 MMOL/L (135-145); TOTAL PROTEIN 6.6 GM/DL (6.4-8.2)
== END 2017-05-01 | disposition home or self-care (01) ==
LOC: ONC 08:42
PROVIDERS: ATTEND Internal Medicine Hematology & Oncology
DX: Z51.11 Encounter for antineoplastic chemotherapy (principal); C34.81 Malignant neoplasm of overlapping sites of right bronchus and lung; C79.71 Secondary malignant neoplasm of right adrenal gland; F17.210 Nicotine dependence, cigarettes, uncomplicated; J43.9 Emphysema, unspecified; R91.1 Solitary pulmonary nodule; K76.9 Liver disease, unspecified; Z79.899 Other long term (current) drug therapy
CPT/HCPCS: 36415; 36591; 71020; 80048; 80053; 83615; 83735; 84443; 85025; 96375; 96413; 99213

== ENCOUNTER 2017-05-24 12:04 | Emergency (ER) | payer MEDICARE ==
[~2017-05-24] VITALS: Ht 188 cm; Wt 81.6 kg
[~2017-05-24 12:04] MED LIST changes: -NIVOLUMAB 200 MG, NIVOLUMAB 40 MG in NS (IVPB) CANCER CENTER 50 ML IV SCH; -NS IV 500 ML (CANCER CENTER) IV SCH; -NS IV SCH; -ONDANSETRON 16 MG, DEXAMETHASONE 10 MG/NS 50 ML IVPB IV SCH; -TOPOTECAN HCL IV SCH
--- OUTSIDE RECORDS SUMMARY | 2017-05-24 12:25 | XMS REPORT | Clinical Summary ---
Author Author [facility] Organization [facility] Address Unknown Phone Unavailable Care Team Providers Care Ice Cream Machine Operator Name Role Phone PCP Unavailable Source Comments Some departments are not documenting in the electronic medical record. If you do not see the information that you expected, contact Release of Information in the Health Information Management department at [phone] for further assistance in locating additional records.[facility] Allergies Active Allergy Reactions Severity Noted Date Comments Penicillins ITCHING, EDEMA Medium 06/23/2016 Sulfa (Sulfonamide SEE COMMENTS Low 06/23/2016 "Makes scrotum peel" Antibiotics) Current Medications Prescription [...] Date Small cell lung cancer (HCC) 06/23/2016 Family History Medical History Relation Name Comments Stroke Mother Relation Name Status Comments Mother Social History Tobacco Use Types Packs/Day Years Used Date Former Smoker Cigarettes 0.25 50 Quit: 06/23/2015 Smokeless Tobacco: Never Used Alcohol Use Drinks/Week oz/Week Comments No 0 Standard 0.0 drinks or equivalent Sex Assigned at Date Recorded Not on file Last Filed Vital Signs Vital Sign Reading Time Taken Blood Pressure 130/87 07/03/2016 10:16 AM CDT Pulse 86 07/03/2016 10:16 AM CDT Temperature 36.8 C (98.3 F) 07/03/2016 10:16 AM CDT Respiratory Rate 18 07/03/2016 10:16 AM CDT Oxygen Saturation 94% 07/03/2016 10:16 AM CDT Inhaled Oxygen - - Concentration Weight 97.7 kg (215 lb 6.4 oz) 07/03/2016 10:16 AM CDT Height 188 cm (6' 2") 07/03/2016 10:16 AM CDT Body Mass Index 27.66 07/03/2016 10:16 AM CDT Plan of Treatment Health Maintenance Due Date Last Done Comments HEPATITIS C SCREENING 1945 PHYSICAL (COMPREHENSIVE) 1953 EXAM PERTUSSIS VACCINE 1957 TETANUS VACCINE 1963 COLORECTAL CANCER 1996 SCREENING SHINGLES VACCINE 2006 ABDOMINAL AORTIC ANEURYSM 2011 SCREENING PREVNAR/PNEUMOVAX (#1) 2011 INFLUENZA VACCINE 06/08/2017 05/08/2015 (Previously completed) Results Not on filefrom Last 3 Months
--- NOTE | 2017-05-24 12:47 | ED Cough/URI ---
General Chief Complaint: Coughing up blood Stated Complaint: COUGHING UP BLOOD Nursing Triage Note: PT REPORTS A HISTORY OF SMALL CELL LUNG CANCER AND STARTED COUGHING UP BLOOD THIS MORNING. Source: patient Exam Limitations: no limitations History of Present Illness Time seen by provider: 12:43 Initial Comments To ER with reports of coughing up blood-tinged sputum this morning. He has small cell lung cancer treated with Opdivo every other week by Dr. Hines. His recent CT scan done in March of this year showed metastasis with a new prevertebral lower thoracic soft tissue mass, pancreatic metastasis, L2 vertebral metastasis. However, the patient's insists that his back pain has improved and he gained 2 pounds of weight in the past week and these multiple sites of metastasis have likely improved because "God heals in miraculous ways". Patient himself reports that he has no appetite for anything in his back pain has returned. He denies any chest pain or shortness of breath. The hemoptysis just began this morning. The hemoptysis Timing/Duration: this morning Severity/Quality: moderate Associated Symptoms: cough Allergies and Home Medications Allergies Coded Allergies: Penicillins (Verified Allergy, Unknown, 08/03/15) Sulfa (Sulfonamide Antibiotics) (Verified Allergy, Unknown, 08/03/15) Home Medications Alprazolam 0.5 Mg Tablet, 0.5 MG PO TID PRN for ANXIETY, (Reported) Aspirin 325 Mg Tablet, 325 MG PO HS, (Reported) Baclofen 10 Mg Tablet, 10 MG PO BID, (Reported) Bee Pollen 580 Mg Capsule, 580 MG PO DAILY, (Reported) Dicyclomine HCl 10 Mg Capsule, 10 MG PO BID, (Reported) Diltiazem HCl 180 Mg Cap.er.24h, 180 MG PO DAILY for 30 Days Prescribed by: MARY MCCORMICK on 03/29/17 1048 Doxycycline Hyclate 100 Mg Capsule, 100 MG PO BID, (Reported) FILLED 03/23/17 #20 FOR A 10 DAY THERAPY [place]-3 Fatty Acids/Fish Oil 1 Each Capsule, 2,400 MG PO DAILY, (Reported) TAKES 2 (1,200 MG) CAPSULES Ondansetron HCl 8 Mg Tablet, 8 MG PO Q8H PRN for NAUSEA/VOMITING-1ST LINE, ( Reported) Prednisone 10 Mg Tab, PO UD, (Reported) FILLED 03/23/17 #20 FOR A 8 DAY TAPER THERAPY 2 TABS PO BID X 2 1 TAB PO TID X 2 1 TAB PO BID X 2 1 TAB PO QD X 2 Simvastatin 40 Mg Tablet, 20 MG PO HS, (Reported) TAKES 1/2 OF A (40 MG) TABLET Tamsulosin HCl 0.4 Mg Cap.er.24h, 0.4 MG PO DAILY, (Reported) Tramadol HCl 50 Mg Tablet, 50 MG PO TID PRN for PAIN-MODERATE, (Reported) Turmeric Root Extract 500 Mg Capsule, 500 MG PO DAILY, (Reported) Vitamin B Complex & Vit C No.4 150 Mg Tablet, 150 MG PO DAILY, (Reported) Vitamin E Acetate 400 Unit Capsule, 400 UNIT PO DAILY, (Reported) Zinc Gluconate 30 Mg Tablet, 30 MG PO DAILY, (Reported) [Apricot] , 1 TAB PO DAILY, (Reported) [Perfect Eye] , 1 CAP PO DAILY, (Reported) [Skeleton Strength] , 1 CAP PO DAILY, (Reported) Constitutional: see HPI, No chills, No fever EENTM: see HPI Respiratory: see HPI, cough, hemoptysis Cardiovascular: no symptoms reported Genitourinary: no symptoms reported Musculoskeletal: no symptoms reported Skin: no symptoms reported Psychiatric/Neurological: No Symptoms Reported Hematologic/Lymphatic: No Symptoms Reported Past Unznhjt-Zznnwy-Bcqldc Hx Patient Social History Alcohol Use: Denies Use Recreational Drug Use: No Type Used: Cigarettes Recent Foreign Travel: No Contact w/Someone Who Travel: No Recent Infectious Disease Expo: No Recent Hopitalizations: No Immunizations Up To Date PED Vaccines UTD: No Date of Pneumonia Vaccine: Jul 08, 2015 Date of Influenza Vaccine: Jun 09, 2015 Seasonal Allergies Seasonal Allergies: No Surgeries HX Surgeries: Yes (EYE, RT KNEE SCOPE, SKIN CANCER FROM RIGHT SIDE OF NECK) Surgeries: Eye Surgery, Orthopedic Respiratory Hx Respiratory Disorders: Yes (NO SYMPTOMS WITH EMPHYSEMA, ENLARGED LYMPH NODES , LUNG CA) Respiratory Disorders: Emphysema Cardiovascular Hx Cardiac Disorders: Yes (STRESS TEST 3YRS AGO-NO STENTS) Cardiac Disorders: Atrial Fibrillation, High Cholesterol Neurological Hx 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) Reproductive System Hx Reproductive Disorders: No Sexually Transmitted Disease: No HIV/AIDS: No Genitourinary Hx Genitourinary Disorders: Yes (HX OF KIDNEY STONES) Genitourinary Disorders: Prostate Problems, Kidney Stones Gastrointestinal Hx Gastrointestinal Disorders: Yes (DIVERTICULOSIS, PAIN IN STOMACH AFTER EATING MEALS) Gastrointestinal Disorders: Diverticulosis Musculoskeletal Hx Musculoskeletal Disorders: Yes (COMPRESSION FRACTURE L1, L5) Musculoskeletal Disorders: Chronic Back Pain Endocrine Hx Endocrine Disorders: No HEENT HX ENT Disorders: Yes (PARTIALS X2, WEAR GLASSES) HEENT Disorders: Cataract, Glaucoma Loss of Vision: Bilateral Hearing Impairment: Denies Cancer Hx Cancer: Yes (SKIN CANCER) Cancer: Liver, Bone, Lung, Skin, Pancreatic Psychosocial Hx Psychiatric Problems: Yes (DOESNT TAKE MEDS) Behavioral Health Disorders: Anxiety Integumentary HX Skin/Integumentary Disorder: No Blood Transfusions Hx Blood Disorders: No Adverse Reaction to a Blood Tr: No Family Medical History Family Medial History: Patient reports no known family medical history. Physical Exam Vital Signs Vital Sign - Last 12Hours 05/24/17 12:26 Temp 98.9 Pulse 96 Resp 18 B/P (MAP) 105/76 Pulse Ox 98 O2 Delivery Room Air Capillary Refill : Less Than 3 Seconds General Appearance: WD/WN, no apparent distress Eyes: Bilateral Eye Normal Inspection, Bilateral Eye PERRL, Bilateral Eye EOMI HEENT: PERRL/EOMI, normal ENT inspection Neck: non-tender, full range of motion Respiratory: lungs clear, normal breath sounds, no respiratory distress, no accessory muscle use Cardiovascular: regular rate, rhythm, no murmur Gastrointestinal: normal bowel sounds, non tender, soft Extremities: normal range of motion, non-tender Neurologic/Psychiatric: alert, normal mood/affect, oriented x 3 Skin: normal color, warm/dry Progress/Results/Core Measures Results/Orders Lab Results Laboratory Tests Test 05/24/17 13:02 Range/Units White Blood Count 5.3 4.3-11.0 10^3/uL Red Blood Count 4.11 L 4.35-5.85 10^6/uL Hemoglobin 12.3 L 13.3-17.7 G/DL Hematocrit 38 L 40-54 % Mean Corpuscular Volume 92 80-99 FL Mean Corpuscular Hemoglobin 30 25-34 PG Mean Corpuscular Hemoglobin Concent 33 32-36 G/DL Red Cell Distribution Width 14.9 H 10.0-14.5 % Platelet Count 208 130-400 10^3/uL Mean Platelet Volume 9.1 7.4-10.4 FL Neutrophils (%) (Auto) 71 42-75 % Lymphocytes (%) (Auto) 12 12-44 % Monocytes (%) (Auto) 13 H 0-12 % Eosinophils (%) (Auto) 4 0-10 % Basophils (%) (Auto) 0 0-10 % Neutrophils # (Auto) 3.8 1.8-7.8 X 10^3 Lymphocytes # (Auto) 0.6 L 1.0-4.0 X 10^3 Monocytes # (Auto) 0.7 0.0-1.0 X 10^3 Eosinophils # (Auto) 0.2 0.0-0.3 10^3/uL Basophils # (Auto) 0.0 0.0-0.1 10^3/uL Prothrombin Time 13.6 12.2-14.7 SEC INR Comment 1.0 0.8-1.4 Activated Partial Thromboplast Time 29 24-35 SEC Sodium Level 137 135-145 MMOL/L Potassium Level 3.7 3.6-5.0 MMOL/L Chloride Level 104 98-107 MMOL/L Carbon Dioxide Level 25 21-32 MMOL/L Anion Gap 8 5-14 MMOL/L Blood Urea Nitrogen 10 7-18 MG/DL Creatinine 0.78 0.60-1.30 MG/DL Estimat Glomerular Filtration Rate > 60 BUN/Creatinine Ratio 13 Glucose Level 119 H 70-105 MG/DL Calcium Level 9.0 8.5-10.1 MG/DL Total Bilirubin 0.4 0.1-1.0 MG/DL Aspartate Amino Transf (AST/SGOT) 21 5-34 U/L Alanine Aminotransferase (ALT/SGPT) 15 0-55 U/L Alkaline Phosphatase 59 40-136 U/L Total Protein 6.8 6.4-8.2 GM/DL Albumin 3.8 3.2-4.5 GM/DL Amylase Level 146 H 25-125 U/L Lipase 310 H 8-78 U/L My Orders Orders - YAHIR ZULETA APRN Cbc With Automated Diff (05/24/17 12:31) Comprehensive Metabolic Panel (05/24/17 12:31) Protime With Inr (05/24/17 12:31) Partial Thromboplastin Time (05/24/17 12:31) Chest Pa/Lat (2 View) (05/24/17 12:31) Lipase (05/24/17 12:42) Amylase (05/24/17 12:42) Ct Angio Chest W (05/24/17 13:04) Iohexol Injection (Omnipaque 350 Mg/Ml 1 (05/24/17 14:00) Ns (Ivpb) (Sodium Chloride 0.9% Ivpb Bag (05/24/17 14:00) Medications Given in ED Current Medications Medications Dose Ordered Sig/Jose Route Start Time Stop Time Status Last Admin Dose Admin Iohexol 100 ml ONCE ONCE IV 05/24/17 14:00 05/24/17 14:01 DC 05/24/17 13:56 100 ML Sodium Chloride 80 ml ONCE ONCE IV 05/24/17 14:00 05/24/17 14:01 DC 05/24/17 13:56 80 ML Vital Signs/I&O Vital Sign - Last 12Hours 05/24/17 12:26 Temp 98.9 Pulse 96 Resp 18 B/P (MAP) 105/76 Pulse Ox 98 O2 Delivery Room Air Blood Pressure Mean: 86 Departure Communication Progress Notes NAME: JAYCEE COLLADO [facility] REC#: [id number] PT STATUS: REG ER : 1945 PHYSICIAN: YAHIR ZULETA APRN ADMIT DATE: 05/24/17/ER Draft Date of Exam:05/24/17 CT ANGIO CHEST W PROCEDURE: CT angiography of the chest with contrast. TECHNIQUE: Multiple contiguous axial images were obtained through the chest after uneventful bolus administration of intravenous contrast. Reconstructed CTA MIP acquisitions were also performed. INDICATION: Respiratory distress. FINDINGS: The aorta has minimal calcific atherosclerosis with no aneurysm or dissection. There are no pulmonary emboli seen. There is a sliver mass in the right hilum that measures 30 x 43 mm. There is a second silver mass in the right infrahilar region measuring 30 x 35 mm. There is lymphadenopathy in the AP window with the largest node measuring 22 mm in long axis. There is retrocrural lymphadenopathy in the right lower mediastinum. There are emphysematous changes in the lungs. There are no effusions or pneumothoraces. There is a patchy infiltrate in the superior segment of the left lower lobe. There is a 25 x 40 mm right adrenal mass. There are small stones in the gallbladder. There is an 8 mm stone in the left kidney. IMPRESSION: Interval progression of the right hilar and retrocrural lymphadenopathy as well as a mediastinal lymphadenopathy since the comparison exam done on 03/26/2017. Findings are consistent with metastatic disease. There is no evidence for a pulmonary embolism. Dictated on workstation # [id number] Dict: 05/24/17 1432 Trans: 05/24/17 1447 [facility] [id number] Interpreted by: SIVAN BHARDWAJ Electronically signed by: Impression Impression: Primary Impression: Hemoptysis Additional Impression: Small cell lung cancer Disposition: HOME, SELF-CARE Condition: Stable Departure-Patient Inst. Decision time for Depature: 15:05 Referrals: HORACIO ALONSO DO (PCP/Family) Primary Care Physician Patient Instructions: NO INSTRUCTIONS GIVEN Add. Discharge Instructions: 1. Return to ER for any concerns 2. Follow-up with your doctor next week 3. All discharge instructions reviewed with patient and/or family. Voiced understanding. Copy Copies To 1: HORACIO ALONSO DO; ROBERTO KHAN PETER J APRN May 24, 2017 12:47
[2017-05-24 13:09] LABS: BASOPHILS % (AUTO) 0 % (0-10); EOSINOPHILS # (AUTO) 0.2 10^3/uL (0.0-0.3); EOSINOPHILS % (AUTO) 4 % (0-10); LYMPHOCYTES # (AUTO) 0.6 X 10^3 (1.0-4.0); LYMPHOCYTES % (AUTO) 12 % (12-44); MEAN CORPUSCULAR HEMOGLOBIN 30 PG (25-34); MEAN CORPUSCULAR HGB CONC 33 G/DL (32-36); MEAN CORPUSCULAR VOLUME 92 FL (80-99); MEAN PLATELET VOLUME 9.1 FL (7.4-10.4); MONOCYTES # (AUTO) 0.7 X 10^3 (0.0-1.0); MONOCYTES % (AUTO) 13 % (0-12); NEUTROPHILS # (AUTO) 3.8 X 10^3 (1.8-7.8); NEUTROPHILS % (AUTO) 71 % (42-75); PLATELET COUNT 208 10^3/uL (130-400); RED BLOOD COUNT 4.11 10^6/uL (4.35-5.85); RED CELL DISTRIBUTION WIDTH 14.9 % (10.0-14.5); WHITE BLOOD COUNT 5.3 10^3/uL (4.3-11.0)
[2017-05-24 13:23] LABS: PROTHROMBIN TIME PATIENT 13.6 SEC (12.2-14.7)
[2017-05-24 13:32] LABS: ALANINE AMINOTRANSFERASE 15 U/L (0-55); ALBUMIN 3.8 GM/DL (3.2-4.5); AMYLASE 146 U/L (25-125); ANION GAP 8 MMOL/L (5-14); ASPARTATE AMINO TRANSFERASE 21 U/L (5-34); BILIRUBIN,TOTAL 0.4 MG/DL (0.1-1.0); BLOOD UREA NITROGEN 10 MG/DL (7-18); BUN/CREATININE RATIO 13; CARBON DIOXIDE 25 MMOL/L (21-32); CHLORIDE 104 MMOL/L (98-107); CREATININE SERUM 0.78 MG/DL (0.60-1.30); GFR ESTIMATED > 60; GLUCOSE 119 MG/DL (70-105); LIPASE 310 U/L (8-78); POTASSIUM 3.7 MMOL/L (3.6-5.0); SODIUM 137 MMOL/L (135-145); TOTAL PROTEIN 6.8 GM/DL (6.4-8.2)
--- NOTE | 2017-05-24 13:39 | Diagnostic Imaging Report ---
INDICATION: History of small cell lung cancer. COMPARISON: 03/27/2017. FINDINGS: 2 views of the chest are obtained. Heart size is normal. There is no central venous congestion. Some mild fullness in the laura bilaterally appear similar to the prior study. There are chronic findings of COPD. The lungs are otherwise clear. No acute osseous abnormality is seen. IMPRESSION: Chronic findings of COPD. No new or acute abnormality is demonstrated. Dictated by: Dictated on workstation # [id number]
[2017-05-24] MEDS ORDERED: IOHEXOL 350 MG/ML 100 ML (OMNIPAQUE 350) VIAL IV ONE (14:00)
[2017-05-24] MEDS ORDERED: NS 100 ML (IVPB) BAG IV ONE (14:00)
--- NOTE | 2017-05-24 14:47 | Diagnostic Imaging Report ---
PROCEDURE: CT angiography of the chest with contrast. TECHNIQUE: Multiple contiguous axial images were obtained through the chest after uneventful bolus administration of intravenous contrast. Reconstructed CTA MIP acquisitions were also performed. INDICATION: Respiratory distress. FINDINGS: The aorta has minimal calcific atherosclerosis with no aneurysm or dissection. There are no pulmonary emboli seen. There is a silver mass in the right hilum that measures 30 x 43 mm. There is a second silver mass in the right infrahilar region measuring 30 x 35 mm. There is lymphadenopathy in the AP window with the largest node measuring 22 mm in long axis. There is retrocrural lymphadenopathy in the right lower mediastinum. There are emphysematous changes in the lungs. There are no effusions or pneumothoraces. There is a patchy infiltrate in the superior segment of the left lower lobe. There is a 25 x 40 mm right adrenal mass. There are small stones in the gallbladder. There is an 8 mm stone in the left kidney. IMPRESSION: Interval progression of the right hilar and retrocrural lymphadenopathy as well as a mediastinal lymphadenopathy since the comparison exam done on 03/26/2017. Findings are consistent with metastatic disease. There is no evidence for a pulmonary embolism. Dictated by: Dictated on workstation # [id number]
[2017-05-24 15:45] VITALS: BP 103/70
== END 2017-05-24 15:28 | disposition home or self-care (01) ==
LOC: EDUNIT# 12:04 → ER 12:08
DX: C34.90 Malignant neoplasm of unspecified part of unspecified bronchus or lung (principal); C79.89 Secondary malignant neoplasm of other specified sites; C79.49 Secondary malignant neoplasm of other parts of nervous system; J43.9 Emphysema, unspecified; I48.91 Unspecified atrial fibrillation; E78.00 Pure hypercholesterolemia, unspecified; F41.9 Anxiety disorder, unspecified; Z87.19 Personal history of other diseases of the digestive system; Z85.828 Personal history of other malignant neoplasm of skin; Z87.442 Personal history of urinary calculi; Z79.82 Long term (current) use of aspirin
CPT/HCPCS: 36415; 71020; 71275; 80053; 82150; 83690; 85025; 85610; 85730

== ENCOUNTER → 2017-06-05 | Outpatient (CLI) | payer MEDICARE ==
[~2017-06-05] MED LIST changes: +DILT180C64 PO; -DILT180C90 PO; +IOHEXOL 350 MG/ML 100 ML (OMNIPAQUE 350) VIAL IV ONE; +NS 100 ML (IVPB) BAG IV ONE; +NS 50 ML (IVPB) BAG IV ONE
[2017-06-05] MEDS: CATHETER FLUSH 10 ML SYR IV PRN ×2 (10:09→10:15)
--- NOTE | 2017-06-05 11:05 | Diagnostic Imaging Report ---
PROCEDURE: CT abdomen with contrast only. TECHNIQUE: Multiple contiguous axial images were obtained through the abdomen after the administration of intravenous contrast. INDICATION: There is a partially visualized soft tissue mass adjacent to the right heart border, presumably just below the right hilum, measuring 3.9 cm. There is minimal dependent atelectasis on the right with a small right pleural effusion. There is some bullous emphysematous disease in the lung bases. The liver is normal in size. There are some low-density liver lesions, compatible with cysts. There is no biliary ductal dilatation. The gallbladder is contracted. The spleen is normal. The pancreas is unremarkable. There is a 3.4 cm right adrenal mass. There is a cyst in the right kidney. There are several nonobstructing stones in the left kidney. The abdominal aorta is nonaneurysmal. The bowel gas pattern is nonspecific. There is no free air. There is no ascites. There are degenerative changes in the spine. IMPRESSION: Mass adjacent to the right heart border, presumably an extension of infrahilar adenopathy. Minimal dependent atelectasis in the right lung base and a small right pleural effusion. 3.4 cm right adrenal mass. This is larger than expected for a simple adenoma. Metastatic disease cannot be excluded. Left nephrolithiasis. Dictated by: Dictated on workstation # [id number]
--- NOTE | 2017-06-05 14:30 | Diagnostic Imaging Report ---
INDICATION: Small cell lung cancer. TECHNIQUE: Anterior and posterior whole body planar images were obtained after the administration of 25.7 mCi of technetium-99m MDP. COMPARISON: Comparison made with prior examination from 01/16/2017. FINDINGS: There are now multifocal areas of increased activity in the upper lumbar spine on the right as well as a lower thoracic spine on the right at approximately T10. There is increased activity in the right ischium. There is slight increased uptake in the mid cervical spine. There is normal physiologic uptake within the kidneys bilaterally with excretion into the urinary bladder. IMPRESSION: Interval development of multifocal areas of activity in the cervical, thoracic, and lumbar spine as well as right ischium. This is compatible with metastatic disease. Dictated by: Dictated on workstation # [id number]
== END ==
LOC: CARD 09:56
PROVIDERS: ATTEND Nurse Practitioner Adult Health
DX: C34.81 Malignant neoplasm of overlapping sites of right bronchus and lung (principal); C79.71 Secondary malignant neoplasm of right adrenal gland
CPT/HCPCS: 74160; 78306

== ENCOUNTER 2017-06-21 13:35 | Outpatient (RCR) | payer MEDICARE ==
[2017-05-03 15:17] LABS: BASOPHILS % (AUTO) 0 % (0-10); EOSINOPHILS # (AUTO) 0.2 10^3/uL (0.0-0.3); EOSINOPHILS % (AUTO) 4 % (0-10); LYMPHOCYTES # (AUTO) 0.6 X 10^3 (1.0-4.0); LYMPHOCYTES % (AUTO) 12 % (12-44); MEAN CORPUSCULAR HEMOGLOBIN 30 PG (25-34); MEAN CORPUSCULAR HGB CONC 33 G/DL (32-36); MEAN CORPUSCULAR VOLUME 92 FL (80-99); MONOCYTES # (AUTO) 0.5 X 10^3 (0.0-1.0); MONOCYTES % (AUTO) 9 % (0-12); NEUTROPHILS # (AUTO) 3.8 X 10^3 (1.8-7.8); NEUTROPHILS % (AUTO) 75 % (42-75); PLATELET COUNT 228 10^3/uL (130-400); RED BLOOD COUNT 3.71 10^6/uL (4.35-5.85); RED CELL DISTRIBUTION WIDTH 15.5 % (10.0-14.5); WHITE BLOOD COUNT 5.1 10^3/uL (4.3-11.0)
[2017-05-03 15:46] LABS: ALANINE AMINOTRANSFERASE 16 U/L (0-55); ALBUMIN 3.6 GM/DL (3.2-4.5); ANION GAP 12 MMOL/L (5-14); ASPARTATE AMINO TRANSFERASE 18 U/L (5-34); BILIRUBIN,TOTAL 0.3 MG/DL (0.1-1.0); BLOOD UREA NITROGEN 12 MG/DL (7-18); BUN/CREATININE RATIO 15; CALCIUM 8.9 MG/DL (8.5-10.1); CARBON DIOXIDE 23 MMOL/L (21-32); CHLORIDE 104 MMOL/L (98-107); CREATININE SERUM 0.82 MG/DL (0.60-1.30); GFR ESTIMATED > 60; GLUCOSE 118 MG/DL (70-105); LACTATE DEHYDROGENASE 183 U/L (125-220); POTASSIUM 4.2 MMOL/L (3.6-5.0); SODIUM 139 MMOL/L (135-145); TOTAL PROTEIN 6.5 GM/DL (6.4-8.2)
[2017-05-03 16:11] LABS: THYROID STIMULATING HORMONE 1.01 UIU/ML (0.35-4.94)
[2017-05-18 10:47] LABS: BASOPHILS % (AUTO) 0 % (0-10); EOSINOPHILS # (AUTO) 0.2 10^3/uL (0.0-0.3); EOSINOPHILS % (AUTO) 5 % (0-10); LYMPHOCYTES # (AUTO) 0.6 X 10^3 (1.0-4.0); LYMPHOCYTES % (AUTO) 12 % (12-44); MEAN CORPUSCULAR HEMOGLOBIN 30 PG (25-34); MEAN CORPUSCULAR HGB CONC 33 G/DL (32-36); MEAN CORPUSCULAR VOLUME 91 FL (80-99); MEAN PLATELET VOLUME 8.4 FL (7.4-10.4); MONOCYTES # (AUTO) 0.5 X 10^3 (0.0-1.0); MONOCYTES % (AUTO) 10 % (0-12); NEUTROPHILS # (AUTO) 3.6 X 10^3 (1.8-7.8); NEUTROPHILS % (AUTO) 73 % (42-75); PLATELET COUNT 203 10^3/uL (130-400); RED BLOOD COUNT 3.91 10^6/uL (4.35-5.85)
[2017-05-18 11:11] LABS: ALANINE AMINOTRANSFERASE 18 U/L (0-55); ALBUMIN 3.6 GM/DL (3.2-4.5); ANION GAP 11 MMOL/L (5-14); ASPARTATE AMINO TRANSFERASE 18 U/L (5-34); BILIRUBIN,TOTAL 0.4 MG/DL (0.1-1.0); BLOOD UREA NITROGEN 14 MG/DL (7-18); BUN/CREATININE RATIO 17; CALCIUM 9.1 MG/DL (8.5-10.1); CARBON DIOXIDE 23 MMOL/L (21-32); CHLORIDE 106 MMOL/L (98-107); CREATININE SERUM 0.81 MG/DL (0.60-1.30); GFR ESTIMATED > 60; GLUCOSE 155 MG/DL (70-105); LACTATE DEHYDROGENASE 160 U/L (125-220); POTASSIUM 3.5 MMOL/L (3.6-5.0); SODIUM 140 MMOL/L (135-145); TOTAL PROTEIN 6.5 GM/DL (6.4-8.2)
[2017-05-31 14:58] LABS: BASOPHILS % (AUTO) 0 % (0-10); EOSINOPHILS # (AUTO) 0.2 10^3/uL (0.0-0.3); EOSINOPHILS % (AUTO) 5 % (0-10); LYMPHOCYTES # (AUTO) 0.6 X 10^3 (1.0-4.0); LYMPHOCYTES % (AUTO) 14 % (12-44); MEAN CORPUSCULAR HEMOGLOBIN 29 PG (25-34); MEAN CORPUSCULAR HGB CONC 33 G/DL (32-36); MEAN CORPUSCULAR VOLUME 91 FL (80-99); MONOCYTES # (AUTO) 0.6 X 10^3 (0.0-1.0); MONOCYTES % (AUTO) 13 % (0-12); NEUTROPHILS # (AUTO) 2.9 X 10^3 (1.8-7.8); NEUTROPHILS % (AUTO) 68 % (42-75); PLATELET COUNT 202 10^3/uL (130-400); RED BLOOD COUNT 3.78 10^6/uL (4.35-5.85); RED CELL DISTRIBUTION WIDTH 14.8 % (10.0-14.5); WHITE BLOOD COUNT 4.3 10^3/uL (4.3-11.0)
[2017-05-31 15:23] LABS: ALANINE AMINOTRANSFERASE 16 U/L (0-55); ALBUMIN 3.4 GM/DL (3.2-4.5); ANION GAP 6 MMOL/L (5-14); ASPARTATE AMINO TRANSFERASE 22 U/L (5-34); BILIRUBIN,TOTAL 0.4 MG/DL (0.1-1.0); BLOOD UREA NITROGEN 12 MG/DL (7-18); BUN/CREATININE RATIO 16; CALCIUM 8.7 MG/DL (8.5-10.1); CARBON DIOXIDE 28 MMOL/L (21-32); CHLORIDE 104 MMOL/L (98-107); CREATININE SERUM 0.73 MG/DL (0.60-1.30); GFR ESTIMATED > 60; GLUCOSE 97 MG/DL (70-105); LACTATE DEHYDROGENASE 204 U/L (125-220); POTASSIUM 3.8 MMOL/L (3.6-5.0); SODIUM 138 MMOL/L (135-145); TOTAL PROTEIN 6.2 GM/DL (6.4-8.2)
[2017-05-31 16:08] LABS: THYROID STIMULATING HORMONE 1.54 UIU/ML (0.35-4.94)
[~2017-06-21 13:35] MED LIST changes: -IOHEXOL 350 MG/ML 100 ML (OMNIPAQUE 350) VIAL IV ONE; +NIVOLUMAB 200 MG, NIVOLUMAB 40 MG in NS (IVPB) CANCER CENTER 50 ML IV SCH; -NS 100 ML (IVPB) BAG IV ONE; -NS 50 ML (IVPB) BAG IV ONE; +NS IV 500 ML (CANCER CENTER) IV SCH
== END 2017-07-07 | disposition home or self-care (01) ==
LOC: ONC 13:35
PROVIDERS: ATTEND Internal Medicine Hematology & Oncology
DX: Z51.11 Encounter for antineoplastic chemotherapy (principal); C34.81 Malignant neoplasm of overlapping sites of right bronchus and lung; C79.71 Secondary malignant neoplasm of right adrenal gland; R53.83 Other fatigue; F17.210 Nicotine dependence, cigarettes, uncomplicated; J43.9 Emphysema, unspecified; R91.1 Solitary pulmonary nodule; K76.9 Liver disease, unspecified; Z79.899 Other long term (current) drug therapy
CPT/HCPCS: 36591; 77290; 77295; 77300; 77334; 77336; 77402; 77417; 77470; 80053; 83615; 84443; 85025; 96413; 99213